=== PATIENT | female | born 1970 | race Caucasian/White ===

== ENCOUNTER 2018-09-25 00:01 | Inpatient (IN) | payer MEDICAID ==
[2018-09-25] MEDS: ONDANSETRON 4 MG INJ IV (00:33)
[2018-09-25] MEDS: morphine 4 MG/ML VIAL IV (00:33)
[2018-09-25] MEDS: SOD CHLORIDE 0.9% 1,000 ML IV (00:34)
[2018-09-25 00:35] LABS: ADD MAN DIFF? NO
[2018-09-25 00:38] LABS: WHITE BLOOD COUNT 8.8 10^3/ul (4.8-10.8)
[2018-09-25 00:38] LABS: BASOPHILS % 0.3 % (0.0-2.0); EOSINOPHILS # 0.1 10^3/ul (0.0-0.5); EOSINOPHILS % 0.8 % (0.0-7.0); HEMATOCRIT 37.4 % (37.0-47.0); HEMOGLOBIN 12.3 g/dl (12.0-16.0); LYMPHOCYTES # 1.4 10^3/ul (0.8-2.9); LYMPHOCYTES % 15.5 % (15.0-51.0); MEAN CORPUSCULAR HEMOGLOBIN 29.6 pg (29.0-33.0); MEAN CORPUSCULAR HGB CONC 32.9 g/dl (32.0-37.0); MEAN CORPUSCULAR VOLUME 89.9 fl (82.0-101.0); MEAN PLATELET VOLUME 8.4 fl (7.4-10.4); MONOCYTE # 0.6 10^3/ul (0.3-0.9); MONOCYTES % 6.3 % (0.0-11.0); NEUTROPHIL # 6.7 10^3/ul (1.6-7.5); NEUTROPHILS % 76.6 % (39.0-77.0); PLATELET COUNT 298 10^3/UL (140-415); RED BLOOD COUNT 4.16 10^6/ul (4.20-5.40); RED CELL DISTRIBUTION WIDTH 13.1 % (11.5-14.5)
[2018-09-25 00:55] LABS: ALANINE AMINOTRANSFERASE 484 IU/L (13-69); ALBUMIN/GLOBULIN RATIO 0.95; ALKALINE PHOSPHATASE 259 IU/L (42-121); ANION GAP 11 (5-13); ASPARTATE AMINO TRANSFERASE 321 IU/L (15-46); BILIRUBIN,INDIRECT 0.4 mg/dl (0-1.1); BILIRUBIN,TOTAL 0.9 mg/dl (0.2-1.3); BLOOD UREA NITROGEN 3 mg/dl (7-20); CALCIUM 9.8 mg/dl (8.4-10.2); CARBON DIOXIDE 25 mmol/L (21-31); CHLORIDE 105 mmol/L (97-110); CREATININE 0.58 mg/dl (0.44-1.00); Estimated GFR > 60 mL/min (>60); GLUCOSE 141 mg/dl (70-220); LIPASE 81 U/L (23-300); POTASSIUM 3.8 mmol/L (3.5-5.1); SODIUM 141 mmol/L (135-144); TOTAL PROTEIN 8.2 g/dl (6.1-8.1)
[2018-09-25 01:53] LABS: ADD UMIC YES; UR ASCORBIC ACID NEGATIVE (NEGATIVE); UR BACTERIA FEW /HPF (NONE SEEN); UR BILIRUBIN (Dip) NEGATIVE (NEGATIVE); UR BLOOD (Dip) 3+ mg/dL (NEGATIVE); UR CLARITY SLIGHTLY CLOUDY (CLEAR); UR COLOR YELLOW (YELLOW); UR GLUCOSE (Dip) NEGATIVE (NEGATIVE); UR KETONES (Dip) TRACE mg/dL (NEGATIVE); UR LEUKOCYTE ESTERASE (Dip) 1+ Leu/ul (NEGATIVE); UR NITRITE (Dip) NEGATIVE (NEGATIVE); UR RBC 8 /HPF (0-5); UR SPECIFIC GRAVITY (Dip) 1.005 (1.003-1.030); UR SQUAMOUS EPITHELIAL CELL FEW /HPF (FEW); UR TOTAL PROTEIN (Dip) NEGATIVE (NEGATIVE); UR UROBILINOGEN (Dip) NEGATIVE (NEGATIVE); UR WBC 6 /HPF (0-5)
[2018-09-25] MEDS: PIPER-TAZO 3.375 GM IV (PMX) 100 ML IVPB (02:55)
[2018-09-25] MEDS ORDERED: morphine 2 MG INJ IV (05:30)
[2018-09-25] MEDS ORDERED: NACL 0.9% 3 ML SYG IV (05:30)
[2018-09-25] MEDS ORDERED: ONDANSETRON 4 MG INJ IV (05:30)
[2018-09-25] MEDS: DEXTROSE 5%-0.45% NACL 1,000 ML IV ×4 (06:02→20:00)
[2018-09-25] MEDS: FAMOTIDINE 20 MG INJ IV ×2 (08:56→20:00)
[2018-09-25] MEDS: CEFTRIAXONE 1 GM/50 ML (PMX) 50 ML IVPB (09:07)
[2018-09-25 11:49] LABS: HAAIG REFLEX REFLEX FILED
[2018-09-25 12:07] LABS: HEMOGLOBIN A1C 5.2 % (0-5.9)
[2018-09-25 12:57] LABS: HEPATITIS B SURFACE ANTIGEN NEGATIVE (NEGATIVE)
[2018-09-25 13:15] LABS: HEPATITIS B CORE ANTIBODY NEGATIVE (NEGATIVE); HEPATITIS C VIRAL ANTIBODY NEGATIVE (NEGATIVE)
[2018-09-26] MEDS: DEXTROSE 5%-0.45% NACL 1,000 ML IV ×3 (04:03→09:39)
[2018-09-26 07:13] LABS: ADD MAN DIFF? NO
[2018-09-26 07:18] LABS: BASOPHILS % 0.4 % (0.0-2.0); EOSINOPHILS # 0.1 10^3/ul (0.0-0.5); EOSINOPHILS % 1.8 % (0.0-7.0); HEMATOCRIT 38.1 % (37.0-47.0); HEMOGLOBIN 12.5 g/dl (12.0-16.0); LYMPHOCYTES # 2.4 10^3/ul (0.8-2.9); LYMPHOCYTES % 32.9 % (15.0-51.0); MEAN CORPUSCULAR HEMOGLOBIN 30.3 pg (29.0-33.0); MEAN CORPUSCULAR HGB CONC 32.8 g/dl (32.0-37.0); MEAN CORPUSCULAR VOLUME 92.3 fl (82.0-101.0); MEAN PLATELET VOLUME 8.5 fl (7.4-10.4); MONOCYTE # 0.5 10^3/ul (0.3-0.9); MONOCYTES % 6.8 % (0.0-11.0); NEUTROPHIL # 4.2 10^3/ul (1.6-7.5); NEUTROPHILS % 57.7 % (39.0-77.0); PLATELET COUNT 304 10^3/UL (140-415); RED BLOOD COUNT 4.13 10^6/ul (4.20-5.40); RED CELL DISTRIBUTION WIDTH 13.4 % (11.5-14.5)
[2018-09-26 07:18] LABS: WHITE BLOOD COUNT 7.2 10^3/ul (4.8-10.8)
[2018-09-26 08:04] LABS: ALANINE AMINOTRANSFERASE 335 IU/L (13-69); ALBUMIN 4.3 g/dl (3.3-4.9); ALBUMIN/GLOBULIN RATIO 1.04; ALKALINE PHOSPHATASE 201 IU/L (42-121); ANION GAP 10 (5-13); ASPARTATE AMINO TRANSFERASE 119 IU/L (15-46); BILIRUBIN,INDIRECT 0.4 mg/dl (0-1.1); BILIRUBIN,TOTAL 0.4 mg/dl (0.2-1.3); BLOOD UREA NITROGEN 4 mg/dl (7-20); CALCIUM 9.2 mg/dl (8.4-10.2); CARBON DIOXIDE 23 mmol/L (21-31); CHLORIDE 110 mmol/L (97-110); CREATININE 0.56 mg/dl (0.44-1.00); Estimated GFR > 60 mL/min (>60); GLUCOSE 98 mg/dl (70-220); PHOSPHORUS 3.8 mg/dl (2.5-4.9); POTASSIUM 3.6 mmol/L (3.5-5.1); SODIUM 143 mmol/L (135-144); TOTAL PROTEIN 8.4 g/dl (6.1-8.1)
[2018-09-26] MEDS: CEFTRIAXONE 1 GM/50 ML (PMX) 50 ML IVPB (08:18)
[2018-09-26] MEDS: FAMOTIDINE 20 MG INJ IV ×2 (08:18→21:03)
[2018-09-26] MEDS: SOD CHLORIDE 0.9% 1,000 ML IV ×2 (14:00→18:55)
[2018-09-26] MEDS ORDERED: LIDOCAINE 2% (SDV) 5 ML INJ (16:00)
[2018-09-26] MEDS: INDOMETHACIN 50 MG SUPP PR (16:00)
[2018-09-26] MEDS ORDERED: IOHEXOL 300MG/ML 30 ML BTL (16:00)
[2018-09-26] MEDS ORDERED: PROPOFOL 100 ML (16:19)
[2018-09-26] MEDS ORDERED: FENTAnyl 50 MCG/ML VIAL (16:27)
[2018-09-26] MEDS ORDERED: ONDANSETRON 4 MG INJ (16:36)
[2018-09-26] MEDS ORDERED: DEXAMETHASONE 4 MG/ML 1 ML INJ (16:36)
[2018-09-26] MEDS ORDERED: SUGAMMADEX SODIUM 200 MG/2 ML VIAL IV (17:35)
[2018-09-26] MEDS ORDERED: ACETAMINOPHEN 1000MG/100ML IV 100 ML (17:35)
[2018-09-26] MEDS ORDERED: ALBUTEROL 0.083% (NEB) 2.5 MG/3 ML AMP HHN (18:00)
[2018-09-26] MEDS ORDERED: MIDAZOLAM 1 MG/ML 2 ML INJ IV (18:00)
[2018-09-26] MEDS ORDERED: HYDROmorphONE 1 MG/5 ML IV SYRINGE IV ×2 (18:00)
[2018-09-26] MEDS ORDERED: METOCLOPRAMIDE 10 MG INJ IV (18:00)
[2018-09-26] MEDS: HYDROmorphONE 1 MG/5 ML IV SYRINGE IV ×2 (18:11→18:18)
[2018-09-27] MEDS: SOD CHLORIDE 0.9% 1,000 ML IV ×2 (05:00→18:32)
[2018-09-27 05:21] LABS: ADD MAN DIFF? NO
[2018-09-27 05:24] LABS: RED BLOOD COUNT 3.78 10^6/ul (4.20-5.40)
[2018-09-27 05:25] LABS: BASOPHILS % 0.1 % (0.0-2.0); EOSINOPHILS % 0.1 % (0.0-7.0); HEMATOCRIT 34.1 % (37.0-47.0); HEMOGLOBIN 11.5 g/dl (12.0-16.0); LYMPHOCYTES # 1.5 10^3/ul (0.8-2.9); LYMPHOCYTES % 18.8 % (15.0-51.0); MEAN CORPUSCULAR HEMOGLOBIN 30.4 pg (29.0-33.0); MEAN CORPUSCULAR HGB CONC 33.7 g/dl (32.0-37.0); MEAN CORPUSCULAR VOLUME 90.2 fl (82.0-101.0); MEAN PLATELET VOLUME 8.8 fl (7.4-10.4); MONOCYTE # 0.3 10^3/ul (0.3-0.9); MONOCYTES % 3.5 % (0.0-11.0); NEUTROPHIL # 6.1 10^3/ul (1.6-7.5); PLATELET COUNT 278 10^3/UL (140-415); RED CELL DISTRIBUTION WIDTH 12.9 % (11.5-14.5)
[2018-09-27 05:47] LABS: MAGNESIUM 1.9 mg/dl (1.7-2.5)
[2018-09-27 05:47] LABS: PHOSPHORUS 4.6 mg/dl (2.5-4.9)
[2018-09-27 05:51] LABS: ALANINE AMINOTRANSFERASE 228 IU/L (13-69); ALBUMIN/GLOBULIN RATIO 1.48; ALKALINE PHOSPHATASE 166 IU/L (42-121); ANION GAP 11 (5-13); ASPARTATE AMINO TRANSFERASE 64 IU/L (15-46); BILIRUBIN,INDIRECT 0.1 mg/dl (0-1.1); BILIRUBIN,TOTAL 0.1 mg/dl (0.2-1.3); BLOOD UREA NITROGEN 6 mg/dl (7-20); CALCIUM 9.4 mg/dl (8.4-10.2); CARBON DIOXIDE 22 mmol/L (21-31); CHLORIDE 109 mmol/L (97-110); CREATININE 0.55 mg/dl (0.44-1.00); Estimated GFR > 60 mL/min (>60); GLUCOSE 92 mg/dl (70-220); SODIUM 142 mmol/L (135-144); TOTAL PROTEIN 6.7 g/dl (6.1-8.1)
[2018-09-27] MEDS: FAMOTIDINE 20 MG INJ IV ×2 (08:11→21:09)
[2018-09-27] MEDS: ACETAMINOPHEN 325 MG TAB PO (23:24)
[2018-09-28] MEDS: SOD CHLORIDE 0.9% 1,000 ML IV ×4 (04:43→20:36)
[2018-09-28 06:21] LABS: ADD MAN DIFF? NO
[2018-09-28 06:31] LABS: BASOPHILS % 0.4 % (0.0-2.0); EOSINOPHILS # 0.1 10^3/ul (0.0-0.5); EOSINOPHILS % 1.3 % (0.0-7.0); HEMATOCRIT 32.2 % (37.0-47.0); HEMOGLOBIN 10.5 g/dl (12.0-16.0); LYMPHOCYTES % 43.4 % (15.0-51.0); MEAN CORPUSCULAR HEMOGLOBIN 29.8 pg (29.0-33.0); MEAN CORPUSCULAR HGB CONC 32.6 g/dl (32.0-37.0); MEAN CORPUSCULAR VOLUME 91.5 fl (82.0-101.0); MONOCYTE # 0.4 10^3/ul (0.3-0.9); MONOCYTES % 5.9 % (0.0-11.0); NEUTROPHIL # 3.4 10^3/ul (1.6-7.5); NEUTROPHILS % 48.7 % (39.0-77.0); PLATELET COUNT 255 10^3/UL (140-415); RED BLOOD COUNT 3.52 10^6/ul (4.20-5.40); RED CELL DISTRIBUTION WIDTH 13.2 % (11.5-14.5)
[2018-09-28 06:31] LABS: WHITE BLOOD COUNT 6.9 10^3/ul (4.8-10.8)
[2018-09-28 06:45] LABS: MAGNESIUM 1.8 mg/dl (1.7-2.5)
[2018-09-28 06:45] LABS: PHOSPHORUS 3.7 mg/dl (2.5-4.9)
[2018-09-28 06:48] LABS: ALANINE AMINOTRANSFERASE 170 IU/L (13-69); ALBUMIN 3.5 g/dl (3.3-4.9); ALBUMIN/GLOBULIN RATIO 1.06; ALKALINE PHOSPHATASE 144 IU/L (42-121); ANION GAP 9 (5-13); ASPARTATE AMINO TRANSFERASE 45 IU/L (15-46); BILIRUBIN,INDIRECT 0.5 mg/dl (0-1.1); BILIRUBIN,TOTAL 0.5 mg/dl (0.2-1.3); BLOOD UREA NITROGEN 8 mg/dl (7-20); CALCIUM 8.4 mg/dl (8.4-10.2); CARBON DIOXIDE 22 mmol/L (21-31); CHLORIDE 112 mmol/L (97-110); CREATININE 0.59 mg/dl (0.44-1.00); Estimated GFR > 60 mL/min (>60); GLUCOSE 84 mg/dl (70-220); POTASSIUM 3.4 mmol/L (3.5-5.1); SODIUM 143 mmol/L (135-144); TOTAL PROTEIN 6.8 g/dl (6.1-8.1)
[2018-09-28] MEDS: FAMOTIDINE 20 MG INJ IV ×2 (09:49→20:24)
[2018-09-28 10:02] LABS: INR 0.99; PROTIME 13.2 Sec (11.9-14.9)
[2018-09-28 10:03] LABS: PARTIAL THROMBOPLASTIN TIME 28.6 Sec (23.0-35.0)
[2018-09-28 10:14] LABS: LIPASE 53 U/L (23-300)
[2018-09-28] MEDS ORDERED: SOD CHLORIDE 0.9% 1,000 ML IV (11:30)
[2018-09-28] MEDS: POTASSIUM CHLORIDE (SR) 20 MEQ TAB PO (11:54)
[2018-09-28] MEDS ORDERED: CEFAZOLIN 1 GM INJ (16:09)
[2018-09-28] MEDS ORDERED: ONDANSETRON 4 MG INJ (16:09)
[2018-09-28] MEDS ORDERED: MIDAZOLAM 1 MG/ML 2 ML INJ (16:09)
[2018-09-28] MEDS ORDERED: FENTAnyl 50 MCG/ML VIAL ×2 (16:09→16:59)
[2018-09-28] MEDS ORDERED: GLYCOPYRROLATE 0.4 MG INJ (16:09)
[2018-09-28] MEDS ORDERED: ROCURONIUM 50 MG INJ (16:09)
[2018-09-28] MEDS ORDERED: NEOSTIGMINE 3 MG/3 ML SYRINGE (16:09)
[2018-09-28] MEDS ORDERED: PROPOFOL 20 ML (16:09)
[2018-09-28] MEDS ORDERED: DEXAMETHASONE 4 MG/ML 1 ML INJ (16:09)
[2018-09-28] MEDS ORDERED: ROPIVACAINE 0.5 % 30 ML VIAL (16:12)
[2018-09-28] MEDS ORDERED: HYDROCODONE/APAP (5/325) TAB PO (17:00)
[2018-09-28] MEDS: BUPIVACAINE 0.25%/EPI (SDV) 30 ML INJ (17:05)
[2018-09-28] MEDS: LIDOCAINE 1% (STERILE-PAK) 30 ML INJ (17:06)
[2018-09-28] MEDS: ACETAMINOPHEN 325 MG TAB PO (20:25)
[2018-09-28] MEDS: HYDROCODONE/APAP (5/325) TAB PO (23:38)
[2018-09-29] MEDS: ACETAMINOPHEN 325 MG TAB PO (04:53)
[2018-09-29 05:41] LABS: ADD MAN DIFF? NO
[2018-09-29 05:47] LABS: BASOPHILS % 0.2 % (0.0-2.0); HEMATOCRIT 34.3 % (37.0-47.0); HEMOGLOBIN 11.4 g/dl (12.0-16.0); LYMPHOCYTES # 1.2 10^3/ul (0.8-2.9); LYMPHOCYTES % 11.2 % (15.0-51.0); MEAN CORPUSCULAR HGB CONC 33.2 g/dl (32.0-37.0); MEAN CORPUSCULAR VOLUME 90.3 fl (82.0-101.0); MEAN PLATELET VOLUME 8.8 fl (7.4-10.4); MONOCYTE # 0.4 10^3/ul (0.3-0.9); MONOCYTES % 4.1 % (0.0-11.0); NEUTROPHIL # 8.6 10^3/ul (1.6-7.5); NEUTROPHILS % 83.9 % (39.0-77.0); PLATELET COUNT 297 10^3/UL (140-415); RED CELL DISTRIBUTION WIDTH 12.9 % (11.5-14.5)
[2018-09-29 05:47] LABS: WHITE BLOOD COUNT 10.3 10^3/ul (4.8-10.8)
[2018-09-29 05:59] LABS: PHOSPHORUS 5.1 mg/dl (2.5-4.9)
[2018-09-29 05:59] LABS: MAGNESIUM 1.9 mg/dl (1.7-2.5)
[2018-09-29 06:13] LABS: ALANINE AMINOTRANSFERASE 151 IU/L (13-69); ALBUMIN/GLOBULIN RATIO 1.11; ALKALINE PHOSPHATASE 145 IU/L (42-121); ANION GAP 9 (5-13); ASPARTATE AMINO TRANSFERASE 57 IU/L (15-46); BILIRUBIN,INDIRECT 0.4 mg/dl (0-1.1); BILIRUBIN,TOTAL 0.4 mg/dl (0.2-1.3); BLOOD UREA NITROGEN 7 mg/dl (7-20); CALCIUM 8.7 mg/dl (8.4-10.2); CARBON DIOXIDE 22 mmol/L (21-31); CHLORIDE 111 mmol/L (97-110); CREATININE 0.51 mg/dl (0.44-1.00); Estimated GFR > 60 mL/min (>60); GLUCOSE 107 mg/dl (70-220); POTASSIUM 3.8 mmol/L (3.5-5.1); SODIUM 142 mmol/L (135-144); TOTAL PROTEIN 7.6 g/dl (6.1-8.1)
[2018-09-29] MEDS: SOD CHLORIDE 0.9% 1,000 ML IV (06:22)
[2018-09-29] MEDS: FAMOTIDINE 20 MG INJ IV (09:25)
== END 2018-09-29 14:20 | disposition home or self-care (01) | DRG 419 ==
LOC: E/R 00:01 → 2NE 02:18
PROC: 0FC98ZZ Extirpation of Matter from Common Bile Duct, Via Natural or Artificial Opening Endoscopic (ICD-10-PCS; principal; 2018-09-26 16:18)
PROC: 0FT44ZZ Resection of Gallbladder, Percutaneous Endoscopic Approach (ICD-10-PCS; 2018-09-26 16:18)
PROC: 0F798DZ Dilation of Common Bile Duct with Intraluminal Device, Via Natural or Artificial Opening Endoscopic (ICD-10-PCS; 2018-09-26 16:18)
DX: K80.60 Calculus of gallbladder and bile duct with cholecystitis, unspecified, without obstruction (principal); E66.9 Obesity, unspecified; Z68.35 Body mass index [BMI] 35.0-35.9, adult; K76.0 Fatty (change of) liver, not elsewhere classified
CPT/HCPCS: 74176; 74181; 74330; 80053; 81001; 83036; 83690; 83735; 84100; 84703; 85025; 85610; 85730; 86704; 86708; 86709; 86803; 86850; 86900; 86901; 87086; 87340; 88304; G0378

== ENCOUNTER 2019-08-22 16:05 | Emergency (ER) | payer MEDICAID ==
[2019-08-22] MEDS: LIDOCAINE/MYLANTA 40 ML BTL PO (17:11)
== END 2019-08-22 18:00 | disposition home or self-care (01) ==
LOC: FTE 16:05
DX: K21.9 Gastro-esophageal reflux disease without esophagitis (principal); N39.0 Urinary tract infection, site not specified
CPT/HCPCS: 81003; 81025; 87086; 99283